=== PATIENT | female | born 1990 | race American Indian/Alaskan Native ===

== ENCOUNTER 2018-11-02 15:21 | Emergency (ER) | payer BC ==
[2018-11-02 15:52] VITALS: BP 117/53
[2018-11-02] MEDS ORDERED: BOOSTRIX IM ONE (15:54)
--- NOTE | 2018-11-02 15:54 | Emergency Department Report ---
Abscess Boil HPI - HPI Chief Complaint: Extremity Injury, Lower Stated Complaint: R FOOT/TOE PAIN Time Seen by Provider: 11/02/18 15:49 Location: Lower Extremity Severity: Mild History: Yes Pain, Yes Purulent Drainage, No Fever, No Numbness, No Foreign Body, No Previous History, No Insect Bite HPI: COMES IN WITH R GREAT TOE PAIN AFTER DROPPING OBJECT ON IT TWICE IT BLI STERED AND DRAINED. IT IS CURRENTLY DRY. NAIL HAS FALLEN OFF. DOES NOT KNOW WHEN LAST TDAP WAS Home Medications: Previous Rx's Medication Instructions Recorded Last Taken Type Amoxicillin [Trimox CAP] 500 mg PO BID #20 capsule 11/02/18 Unknown Rx Allergies/Adverse Reactions: Allergies Allergy/AdvReac Type Severity Reaction Status Date / Time OYSTERS AdvReac Swelling Uncoded 11/02/18 15:52 ED Review of Systems ROS: Stated complaint: R FOOT/TOE PAIN Other details as noted in HPI Comment: All other systems reviewed and negative ED Past Medical Hx - Past Medical History Previous Medical History?: No - Surgical History Past Surgical History?: No - Family History Family history: no significant - Social History Smoking Status: Never Smoker Substance Use Type: None - Medications Home Medications: Home Medications Medication Instructions Recorded Confirmed Last Taken Type Amoxicillin [Trimox CAP] 500 mg PO BID #20 capsule 11/02/18 Unknown Rx ED Abscess Boil Physical Exam - Exam General: Vital signs noted. No distress. Alert and acting appropriately. Exam: Yes Tenderness, Yes Normal Neurologic Exam, Yes Normal Circulation, No Fluctuance, No Surrounding Cellulites/Erythema, No Lymphangitis, No Crepitation, No Heart Murmur Critical care attestation.: If time is entered above; I have spent that time in minutes in the direct care of this critically ill patient, excluding procedure time. ED Medical Decision Making - Medical Decision Making SIMPLE WOUND FULL ROM TDAP GIVEN AMOX PO ON DC DC HOME WITH FOLLOW UP PLAN OF CARE Vital Signs 11/02/18 15:49 Temperature 98.6 F Pulse Rate 81 Respiratory 18 Rate Blood Pressure 117/53 [Right] O2 Sat by Pulse 98 Oximetry ED Disposition Clinical Impression: Toe contusion, Cellulitis Disposition: DC-01 TO HOME OR SELFCARE Is pt being admited?: No Does the pt Need Aspirin: No Condition: Stable Instructions: Cellulitis (ED), Foot Contusion (ED) Additional Instructions: SOAK FOOT IN EPSOM SALTS AND WARM WATER KEEP COVERED TAKE MED ORDERED TODAY UNTIL GONE GIVE IT TIME TO SEE IF TOE NAIL WILL GROW BACK FOLLOW UP WITH PODIATRY IF A PROBLEM. THIS IS A FOOT DOCTOR MOTRIN OR TYLENOL FOR PAIN Prescriptions: Amoxicillin [Trimox CAP] 500 mg PO BID #20 capsule Referrals: [facility] [Outside] - 3-5 Days Time of Disposition: 15:51
== END 2018-11-02 17:12 | disposition home or self-care (01) ==
LOC: ED 15:21
DX: S90.111A Contusion of right great toe without damage to nail, initial encounter (principal); L03.031 Cellulitis of right toe; X58.XXXA Exposure to other specified factors, initial encounter; Y93.89 Activity, other specified; Y92.89 Other specified places as the place of occurrence of the external cause; Y99.8 Other external cause status
CPT/HCPCS: 90471; 90715

== ENCOUNTER 2020-01-07 10:48 | Emergency (ER) | payer BC ==
[2020-01-07 11:03] VITALS: BP 114/63
--- NOTE | 2020-01-07 11:17 | Event Note ---
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 Further treatment and workup at subsequent clinical providers discretion. Patient/guardian urged not to elope from the ED as their condition may be serious if not clinically assessed and managed. Initial orders include: ct head
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
[2020-01-07] MEDS ORDERED: BUTALB/ACETAMINOPHEN/CAFFEINE TAB PO ONE (12:39)
== END 2020-01-07 14:27 | disposition home or self-care (01) ==
LOC: ED 10:48
DX: S06.0X9A Concussion with loss of consciousness of unspecified duration, initial encounter (principal); W20.8XXA Other cause of strike by thrown, projected or falling object, initial encounter; Y93.89 Activity, other specified; Y92.89 Other specified places as the place of occurrence of the external cause; Y99.8 Other external cause status
CPT/HCPCS: 70450; 99283

== ENCOUNTER 2020-01-13 15:22 | Emergency (ER) | payer BC ==
[2020-01-13 17:40] VITALS: BP 100/62
--- NOTE | 2020-01-13 17:41 | Emergency Department Report ---
Blank Doc - Documentation Documentation: 29-year-old female that presents with worse headache x1 week after injury at w or[facility]. Denies any neck pain. This initial assessment/diagnostic orders/clinical plan/treatment(s) is/are subject to change based on patient's health status, clinical progression and re- assessment by fellow clinical providers in the ED. Further treatment and workup at subsequent clinical providers discretion. Patient/guardians urged not to elope from the ED as their condition may be serious if not clinically assessed and managed. Initial orders include: 1- Patient sent to [facility] for further evaluation and treatment 2- CT head
--- NOTE | 2020-01-13 18:23 | Cat Scan Report ---
CT head/brain wo con INDICATION / CLINICAL INFORMATION: 29 years Female; headache. TECHNIQUE: Routine CT head without contrast. All CT scans at this location are performed using CT dos e reduction for ALARA by means of automated exposure control. COMPARISON: The study is compared to the previous CT of 01/07/2020. FINDINGS: BRAIN / INTRACRANIAL CONTENTS: The brain demonstrate appropriate attenuation without significant inte rval change from the previous CT. The ventricular system remains within normal limits in size and con figuration. There is no clear CT evidence of acute intracranial hemorrhage or significant mass effect . ORBITS: No significant abnormality of visualized orbits. SINUSES / MASTOIDS: No significant abnormality in the visualized paranasal sinuses or mastoid air smita ls. CRANIOCERVICAL JUNCTION: No significant abnormality. ADDITIONAL FINDINGS: None. IMPRESSION: 1. There is no CT evidence of acute intracranial process. Signer Name: Mani Egan MD Signed: 01/13/2020 6:18 PM Workstation Name: [id number]
[2020-01-13] MEDS ORDERED: ONDANSETRON 4 MG ODT TAB PO ONE (20:24)
[2020-01-13] MEDS ORDERED: BUTALB/ACETAMINOPHEN/CAFFEINE TAB PO ONE (20:24)
[2020-01-13] MEDS ORDERED: KETOROLAC 30 MG/1 ML INJ IM ONE (20:24)
[2020-01-13] MEDS ORDERED: diphenhydrAMINE 25 MG CAP PO ONE (20:25)
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
== END 2020-01-13 21:05 | disposition home or self-care (01) ==
LOC: ED 15:22
DX: G44.309 Post-traumatic headache, unspecified, not intractable (principal); G43.009 Migraine without aura, not intractable, without status migrainosus; F12.10 Cannabis abuse, uncomplicated; Z79.2 Long term (current) use of antibiotics; Z79.899 Other long term (current) drug therapy; Z88.8 Allergy status to other drugs, medicaments and biological substances
CPT/HCPCS: 70450; 99283; J1885; Q0162

== ENCOUNTER 2020-12-12 09:58 | Emergency (ER) | payer BC ==
[2020-12-12] MEDS ORDERED: ONDANSETRON 4 MG/2 ML INJ IV ONE (10:07)
[2020-12-12] MEDS ORDERED: NALOXONE 2 MG/2 ML INJ IV ONE (10:07)
[2020-12-12] MEDS ORDERED: SODIUM CHLORIDE 0.9% 1000 ML 1,000 ML IV ONE (10:08)
--- NOTE | 2020-12-12 10:14 | Emergency Department Report ---
History of Present Illness - General Stated Complaint: vomiting breathing Time Seen by Provider: 12/12/20 10:06 Source: patient, family - History of Present Illness Initial Comments: Patient is a 30 years old female with no significant past medical history. Patient brought to the emergency room via private vehicle by her boyfriend for evaluation of acute altered mental status. Patient boyfriend stated that he found unresponsive and drooling. Patient found to have an oxygen saturation of 87% on room air. Patient started on nonrebreather and her oxygen saturation went to 100%. Patient now is talking. She stated that she was drinking last night and using marijuana. She denied any other drugs. Patient denied suicidal ideation. Patient also denied any auditory or visual hallucination. MD Complaint: accidental overdose -: Sudden - Related Data Previous Rx's Medication Instructions Recorded Last Taken Type Amoxicillin [Trimox CAP] 500 mg PO BID #20 capsule 11/02/18 Unknown Rx Butalb/Acetamin/Caff 50-325-40 2 tab PO TID PRN #15 tablet 01/13/20 Unknown Rx [Fioricet 50-325-40] Ketorolac [Toradol] 10 mg PO Q8H PRN #20 tablet 01/13/20 Unknown Rx Promethazine [Phenergan] 25 mg PO Q6HR PRN #24 tab 01/13/20 Unknown Rx Allergies Allergy/AdvReac Type Severity Reaction Status Date / Time OYSTERS AdvReac Swelling Uncoded 01/07/20 11:04 ED Review of Systems ROS: Stated complaint: vomiting breathing Other details as noted in HPI Comment: All other systems reviewed and negative Constitutional: denies: chills, fever Respiratory: denies: cough, shortness of breath, SOB with exertion Cardiovascular: denies: chest pain, palpitations Gastrointestinal: denies: abdominal pain, nausea, vomiting, diarrhea, co nstipation, hematemesis Musculoskeletal: denies: back pain Neurological: denies: headache, weakness ED Past Medical Hx - Social History Smoking Status: Never Smoker Substance Use Type: Marijuana - Medications Home Medications: Home Medications Medication Instructions Recorded Confirmed Last Taken Type Amoxicillin [Trimox CAP] 500 mg PO BID #20 capsule 11/02/18 Unknown Rx Butalb/Acetamin/Caff 50-325-40 2 tab PO TID PRN #15 tablet 01/13/20 Unknown Rx [Fioricet 50-325-40] Ketorolac [Toradol] 10 mg PO Q8H PRN #20 tablet 01/13/20 Unknown Rx Promethazine [Phenergan] 25 mg PO Q6HR PRN #24 tab 01/13/20 Unknown Rx ED Physical Exam - General General appearance: obtunded - Head Head exam: Present: atraumatic, normocephalic, normal inspection - Eye Eye exam: Present: normal appearance Pupils: Present: miosis - ENT ENT exam: Present: normal exam, normal orophraynx, mucous membranes moist - Neck Neck exam: Present: normal inspection, full ROM. Absent: tenderness, meningismus - Respiratory Respiratory exam: Present: normal lung sounds bilaterally - Cardiovascular Cardiovascular Exam: Present: regular rate, normal rhythm, normal heart sounds - GI/Abdominal GI/Abdominal exam: Present: soft, normal bowel sounds. Absent: distended, tenderness, guarding, rebound, rigid, organomegaly, mass, bruit, pulsatile mass, hernia - Extremities Exam Extremities exam: Present: normal inspection, full ROM, normal capillary refill. Absent: pedal edema, calf tenderness - Back Exam Back exam: Present: normal inspection, full ROM. Absent: CVA tenderness (R), CVA tenderness (L) - Neurological Exam Neurological exam: Present: alert, oriented X3, CN II-XII intact - Psychiatric Psychiatric exam: Absent: homicidal ideation, suicidal ideation - Skin Skin exam: Present: warm, normal color ED Medical Decision Making - Lab Data Result diagrams: 12/12/20 10:22 12/12/20 10:22 - Medical Decision Making Patient is a 30 years old female with no significant past medical history. Patient brought to the emergency room via private vehicle by her boyfriend for evaluation of acute altered mental status. Patient boyfriend stated that he found unresponsive and drooling. Patient found to have an oxygen saturation of 87% on room air. Patient started on nonrebreather and her oxygen saturation went to 100%. Patient now is talking. She stated that she was drinking last night and using marijuana. She denied any other drugs. Patient denied suicidal ideation. Patient also denied any auditory or visual hallucination. Patient received normal saline, Zofran and Reglan. Patient stated that she is feeling much better. Labs reviewed and is unremarkable except for positive UDS for marijuana. Patient discharged home and counseled about alcohol abuse and marijuana. Patient advised to return to the ER she develop any new symptoms. Critical care attestation.: If time is entered above; I have spent that time in minutes in the direct care of this critically ill patient, excluding procedure time. ED Disposition Clinical Impression: Altered mental status, Polysubstance abuse, Acute nausea with nonbilious vomiting Disposition: DC-01 TO HOME OR SELFCARE Is pt being admited?: No Condition: Stable Instructions: Substance Use Disorder and Mental Illness Referrals: PRIMARY CARE, [Primary Care Provider] - 3-5 Days
[2020-12-12 11:01] LABS: Basophils # (Auto) 0.1 K/mm3 (0.0-0.1); Basophils % (Auto) 0.9 % (0.0-1.8); Eosinophils # (Auto) 0.1 K/mm3 (0.0-0.4); Eosinophils % (Auto) 1.1 % (0.0-4.3); Hematocrit 35.9 % (30.3-42.9); Hemoglobin 12.3 gm/dl (10.1-14.3); Lymphocytes % (Auto) 22.4 % (13.4-35.0); Mean Corpuscular HGB Conc 34 % (30-34); Mean Corpuscular Volume 95 fl (79-97); Monocytes # (Auto) 0.4 K/mm3 (0.0-0.8); Monocytes % (Auto) 4.6 % (0.0-7.3); Platelet Count 189 K/mm3 (140-440); Red Blood Count 3.79 M/mm3 (3.65-5.03); Red Cell Distribution Width 13.5 % (13.2-15.2)
[2020-12-12 11:16] LABS: Albumin 4.5 g/dL (3.9-5); Blood Urea Nitrogen 10 mg/dL (7-17); Calcium 9.7 mg/dL (8.4-10.2); Hemolysis Index 7
[2020-12-12 11:48] LABS: Alanine Aminotransferase < 5 units/L (7-56); BUN/Creatinine Ratio 17; Bilirubin,Direct < 0.2 mg/dL (0-0.2)
[2020-12-12] MEDS ORDERED: METOCLOPRAMIDE 10 MG/2 ML INJ ONE (12:04)
[2020-12-12] MEDS ORDERED: METOCLOPRAMIDE 10 MG/2 ML INJ IV ONE (12:36)
[2020-12-12 12:56] LABS: Amphetamine Screen,Urine Negative; Benzodiazepines Screen,Urine Negative; Cocaine Screen,Urine Negative; Methadone Screen,Urine Negative; Opiate Screen,Urine Negative
[2020-12-12 13:10] LABS: Cannabinoid Screen,Urine Positive
[2020-12-12 13:19] LABS: Bilirubin,Urine NEG (Negative); Blood,Urine LG (Negative); Color,Urine Yellow (Yellow); Mucus,Urine 2+ /HPF; Urobilinogen,Urine < 2.0 mg/dL (<2.0)
== END 2020-12-12 14:00 | disposition home or self-care (01) ==
LOC: ED 09:58
DX: F19.10 Other psychoactive substance abuse, uncomplicated (principal); R41.82 Altered mental status, unspecified; R11.2 Nausea with vomiting, unspecified; Z79.2 Long term (current) use of antibiotics; Z79.899 Other long term (current) drug therapy; Z88.8 Allergy status to other drugs, medicaments and biological substances
CPT/HCPCS: 36415; 80048; 80076; 80307; 81001; 84703; 85025; 96361; 96374; 96375; 99283; J2310; J2405; J2765; J7030; 80320; G0480